=== PATIENT | female | born 1990 | race Caucasian/White ===

== ENCOUNTER 2016-11-17 06:30 | Inpatient (IN) | payer MEDICAID ==
[~2016-11-17] VITALS: Ht 172.7 cm; Wt 76.4 kg
--- NOTE | ~2016-11-17 | OR ---
PATIENT'S NAME: MITESH CORNELIUS [facility] AGE: 26 Y [address] ROOM: [place] [address] LOCATION: GOBS ADMIT DATE: 11/17/2016 OR/Procedure Report DISCHARGE DATE: 11/19/2016 FAMILY PHYSICIAN: , NO ATTENDING PHYSICIAN: Marissa Moran SURGEON: Marissa Moran MD PRINTED [employer] DRAFTSMAN: DATE OF PROCEDURE: 11/17/2016 PREOPERATIVE DIAGNOSES: 1. Intrauterine at 40 weeks and 2 days. 2. Induction of labor. POSTOPERATIVE DIAGNOSES: 1. Intrauterine at 40 weeks and 2 days. 2. Induction of labor. PROCEDURE: Spontaneous vaginal delivery. ESTIMATED BLOOD LOSS: 300 mL. ANESTHESIA: Epidural. FINDINGS: Male infant, score of 8 and 9. Weight pending. Second- degree perineal laceration. INDICATIONS: This patient is a 26-year-old, G2, P1-0-0-1 female, who presented for induction of labor with favorable cervix. She was 3 cm upon admission. She had artificial rupture of membranes and Pitocin. She progressed along a normal labor curve to complete. She underwent expulsive efforts for just a few contractions. DESCRIPTION OF PROCEDURE: With expulsive effort, the head was delivered over an intact perineum. The rest of fetus was delivered. The nose and mouth were bulb suctioned. The cord was clamped and cut. The infant was handed to awaiting team. Cord blood was drawn. The placenta delivered with manual traction. Cervix, vagina, and perineum were examined. A second-degree perineal laceration was noted and repaired in a standard fashion with Vicryl suture. COMPLICATIONS: None. CONDITION: Mom stable in room. to nursery. PATIENT'S NAME: MITESH CORNELIUS [facility] AGE: 26 Y [address] ROOM: [place] [address] LOCATION: GOBS ADMIT DATE: 11/17/2016 OR/Procedure Report DISCHARGE DATE: 11/19/2016 FAMILY PHYSICIAN: PHYSICIAN, NO ATTENDING PHYSICIAN: Marissa Moran MD YONG MAYA/modl /[id number] d: 12/03/16941 t: 12/06/16829, OPERATIVE SUMMARY
[2016-11-17 07:12] LABS: BASOPHIL % 0.3 %; EOSINOPHIL # 0.1 K/uL (0.0-0.5); EOSINOPHIL % 1.1 %; HEMATOCRIT 38.2 % (33.0-46.0); HEMOGLOBIN 13.1 g/dL (11.0-15.0); IMMATURE GRANULOCYTE # 0.1 K/uL (0.0-0.3); IMMATURE GRANULOCYTE % 0.6 %; LYMPHOCYTE # 2.3 K/uL (0.8-4.0); LYMPHOCYTE % 26.4 %; MCH 31.6 pg (27.0-34.0); MCHC 34.3 gm/dL (32.0-36.5); MONOCYTE # 0.4 K/uL (0.0-1.0); MONOCYTE % 4.4 %; MPV 10.9 fl (9.4-12.4); NEUTROPHIL # (ANC) 5.9 K/uL (1.8-7.8); NEUTROPHIL % 67.2 %; NRBC % 0 /100WBC (0-0.00); PLATELET COUNT 227 K/uL (150-450); RBC 4.15 M/uL (3.50-5.00); RDW-CV 12.1 % (11.9-14.6); WBC 8.8 K/uL (4.0-11.0)
[2016-11-17] MEDS ORDERED: PRENATAL 1+1)(P1 TAB PO (07:12)
[2016-11-17 16:07] LABS: PCO2 65 mmHg (35-45); PO2 15 mmHg (80-90)
[2016-11-17 16:08] LABS: BICARBONATE 24.9 mmol/L (18.0-23.0)
--- NOTE | 2016-11-17 18:02 | NUR ---
Significant Event: Follow up: IV SL. PT STATES LEGS ARE STILL TINGLING. FUNDUS FIRM -2, SMALL AMT RUBRA FLOW. NO C/O PAIN.
[2016-11-18 04:01] LABS: BASOPHIL # 0.1 K/uL (0.0-0.2); BASOPHIL % 0.5 %; EOSINOPHIL # 0.1 K/uL (0.0-0.5); EOSINOPHIL % 1.3 %; HEMATOCRIT 32.4 % (33.0-46.0); HEMOGLOBIN 10.9 g/dL (11.0-15.0); IMMATURE GRANULOCYTE # 0.1 K/uL (0.0-0.3); IMMATURE GRANULOCYTE % 0.5 %; LYMPHOCYTE # 2.3 K/uL (0.8-4.0); LYMPHOCYTE % 20.5 %; MCH 31.3 pg (27.0-34.0); MCHC 33.6 gm/dL (32.0-36.5); MCV 93.1 fl (83.0-98.0); MONOCYTE # 0.6 K/uL (0.0-1.0); MONOCYTE % 5.5 %; MPV 10.5 fl (9.4-12.4); NEUTROPHIL # (ANC) 7.9 K/uL (1.8-7.8); NEUTROPHIL % 71.7 %; NRBC % 0 /100WBC (0-0.00); PLATELET COUNT 184 K/uL (150-450); RBC 3.48 M/uL (3.50-5.00); RDW-CV 12.2 % (11.9-14.6)
--- NOTE | 2016-11-18 18:00 | NUR ---
11/18/16 1800: VSS,breastfeeds infant well. ff,small rubra flow. Mariam @__. Perc___. Request shower in Pm.
--- NOTE | 2016-11-19 06:02 | NUR ---
VSS. Pain rating 4. Last had Motrin at 0540. Fundus 1 down, firm, midline. Small flow. Nipples intact. Has Lanolin at bedside. Ambulates in room and up to BR independently. Plans home today
[2016-11-19] MEDS ORDERED: DERMOPLAST SPRA56 GM TOP (09:26)
[2016-11-19] MEDS ORDERED: MOTRIN800 MG PO (09:27)
[2016-11-19] MEDS ORDERED: PERCOCET 5-3251 EACH PO (09:27)
== END 2016-11-19 12:00 | disposition disaster alternative care site (69) | DRG 775 ==
LOC: GOBM 06:30 → GOBS 06:30 → GOBM 06:31 → GOBS 09:26
PROVIDERS: ADMIT Obstetrics & Gynecology
PROC: 10E0XZZ Delivery of Products of Conception, External Approach (ICD-10-PCS; principal; 2016-11-17)
PROC: 10907ZC Drainage of Amniotic Fluid, Therapeutic from Products of Conception, Via Natural or Artificial Opening (ICD-10-PCS; principal; 2016-11-17)
PROC: 3E033VJ Introduction of Other Hormone into Peripheral Vein, Percutaneous Approach (ICD-10-PCS; principal; 2016-11-17)
PROC: 0KQM0ZZ Repair Perineum Muscle, Open Approach (ICD-10-PCS; principal; 2016-11-17)
DX: O70.1 Second degree perineal laceration during delivery (principal); Z37.0 Single live birth; O75.5 Delayed delivery after artificial rupture of membranes; Z3A.40 40 weeks gestation of pregnancy
CPT/HCPCS: J2001; J2590; J3010; J7120